=== PATIENT | female | born 1995 | race Hispanic/Latino ===

== ENCOUNTER → 2025-04-12 | Outpatient (CLI) | payer OTHER ==
--- NOTE | 2025-04-13 16:12 | HMCIMG ---
EXAMINATION: CT Abdomen and Pelvis without contrast. CLINICAL HISTORY: Other microscopic hematuria, rebound abdominal tenderness TECHNIQUE: Multiple contiguous axial CT images were obtained through the abdomen and pelvis. Coronal and sagittal reconstructions were also obtained. COMPARISON: None. FINDINGS: Included chest reveals bilateral breast implants. The liver, gallbladder, spleen, pancreas, adrenal glands, and kidneys appear within normal limits. Bowel loops are normal in caliber without evidence of obstruction, ileus, or obvious bowel wall thickening. Urinary bladder is well distended with normal wall thickening. Uterus is normal in caliber. Both ovaries are normal in caliber. There is no ascites or lymphadenopathy. There are pelvic phleboliths No acute or suspicious osseous abnormality. IMPRESSION: Unremarkable study of the abdomen and pelvis. /Jeff
== END | disposition home or self-care (01) ==
LOC: RAH 13:45
PROVIDERS: ATTEND Internal Medicine
DX: I87.8 Other specified disorders of veins (principal); R31.29 Other microscopic hematuria; R10.A2 Flank pain, left side; Z98.82 Breast implant status
CPT/HCPCS: 74176